=== PATIENT | female | born 1995 | race Caucasian/White ===

== ENCOUNTER 2017-06-29 22:36 | Emergency (ER) | payer OTHER ==
--- NOTE | 2017-06-30 00:47 | ER Document Report ---
ED Animal Bite - General Chief Complaint: Dog Bite Stated Complaint: POSSIBLE DOG BITE Time Seen by Provider: 06/30/17 00:47 Mode of Arrival: Ambulatory Information source: Patient Notes: 22-year-old female was bitten by a beagle yesterday when it jumped up and bit the right palm over the fourth ring finger MCP through the canal. The dog's immunizations are current. Patient does not know her tetanus status but she refuses a tetanus shot. No fever. TRAVEL OUTSIDE OF THE [place] IN LAST 30 DAYS: No - Related Data Allergies/Adverse Reactions: adhesive tape [Adhesive Tape] Allergy (Verified 02/09/16 12:31) breaks out Past Medical History - General Information source: Patient - Social History Smoking Status: Current Every Day Smoker Frequency of alcohol use: None Drug Abuse: None Family History: Reviewed & Not Pertinent Renal/ Medical History: Denies: Hx Peritoneal Dialysis Surgical Hx: Negative - Immunizations Hx Diphtheria, Pertussis, Tetanus Vaccination: Yes Review of Systems - Review of Systems Constitutional: No symptoms reported EENT: No symptoms reported Cardiovascular: No symptoms reported Respiratory: No symptoms reported Gastrointestinal: No symptoms reported Genitourinary: No symptoms reported Female Genitourinary: No symptoms reported Musculoskeletal: No symptoms reported Skin: See HPI Hematologic/Lymphatic: No symptoms reported Neurological/Psychological: No symptoms reported Physical Exam - Vital signs Vitals: Pulse Resp BP Pulse Ox 83 20 110/66 99 06/29/17 22:59 06/29/17 22:59 06/29/17 22:59 06/29/17 22:59 Interpretation: Normal - General General appearance: Appears well, Alert - HEENT Head: Normocephalic, Atraumatic Eyes: Normal Pupils: PERRL Neck: Supple - Respiratory Respiratory status: No respiratory distress Chest status: Nontender Breath sounds: Normal Chest palpation: Normal - Cardiovascular Rhythm: Regular Heart sounds: Normal auscultation Murmur: No - Back Back: Normal, Nontender - Extremities General upper extremity: Normal inspection, Nontender, Normal color, Normal ROM , Normal temperature General lower extremity: Normal inspection, Nontender, Normal color, Normal ROM , Normal temperature, Normal weight bearing. No: Nadege's sign - Neurological Neuro grossly intact: Yes Cognition: Normal Orientation: AAOx4 Dylan Coma Scale Eye Opening: Spontaneous Dylan Coma Scale Verbal: Oriented [place] Coma Scale Motor: Obeys Commands [place] Coma Scale Total: 15 Speech: Normal Motor strength normal: LUE, RUE, LLE, RLE Sensory: Normal - Psychological Associated symptoms: Normal affect, Normal mood - Skin Skin Temperature: Warm Skin Moisture: Dry Skin Color: Normal Skin Turgor: Edematous Skin irregularity: other - superficial abrasions with some pustules to rojas right 4th.ring MCP joint. no tenosynovitis or ascending erythema, FROM, able to feel light touch to the finger. both flexor tendons intact. Course - Re-evaluation Re-evalutation: 06/30/17 01:25 Patient refuses it shot but she will take the antibiotic treatment and dressing to the dog bite. - Vital Signs Vital signs: Temp Pulse Resp BP Pulse Ox 99 F 74 18 115/68 100 06/30/17 01:43 06/30/17 01:43 06/30/17 01:43 06/30/17 01:43 06/30/17 01:43 Discharge - Discharge Clinical Impression: dogbite right palm, 4th/ring MCP joint, local infection dog bite Condition: Good Disposition: HOME, SELF-CARE Instructions: Animal Bites ([facility]), Augmentin ([facility]) Additional Instructions: soak in warm soapy water twice a day bacitracin , dressing finish the antibiotics return to the ER if increased red, swelling, pain or fever Please complete the patient satisfaction survey if you get one, and return it.. If you do not receive a survey, then you can go to the [facility] website, [email or web address] and place your comments about your very good care. Thank you very much. It was a pleasure being your medical provider today. Prescriptions: Amox Tr/Potassium Clavulanate [Augmentin 875-125 mg Tablet] 1 tab PO BID #14 tablet
[2017-06-30] MEDS ORDERED: AMOXICILLIN TR/POT CLAVULANATE 500-125 MG TAB PO ONE (01:24)
[2017-06-30] MEDS ORDERED: AMOXICILLIN TRIHYDRATE 500 MG CAPSULE PO ONE (01:24)
[2017-06-30 01:45] VITALS: BP 115/68
== END 2017-06-30 01:43 | disposition home or self-care (01) ==
LOC: ER 22:36
DX: S61.451A Open bite of right hand, initial encounter (principal); L08.9 Local infection of the skin and subcutaneous tissue, unspecified; W54.0XXA Bitten by dog, initial encounter
CPT/HCPCS: 99283